=== PATIENT | female | born 2000 | race Caucasian/White ===

== ENCOUNTER 2019-04-19 08:40 | Emergency (ER) | payer OTHER ==
[2019-04-19] MEDS ORDERED: WARF4TAB46 PO (08:51)
[2019-04-19] MEDS ORDERED: ETON68IM SQ (08:51)
[2019-04-19] MEDS ORDERED: WARF1TAB56 PO (08:51)
--- NOTE | 2019-04-19 09:02 | ER Report ---
History and Physical Time Seen By MD: 09:00 Hx. of Stated Complaint: bucked off horse is on warafin HPI/ROS 19 y/o female on warfarin for protein c deficiency. 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 Pain at left hip, but able to ambulate with minimal pain. Pain at upper T-spine. No focal neuro deficits. No LOC. No neck pain. Allergies: Coded Allergies: No Known Allergies (Verified Allergy, Unknown, 04/19/19) Home Meds Reported Medications Etonogestrel (NEXPLANON) 68 Mg Implant, 68 MG SQ DIRECTED, IMPLANT 04/19/19 Warfarin Sodium (COUMADIN) 1 Mg Tablet, 0.5 MG PO QDAY 04/19/19 Warfarin Sodium (COUMADIN) 4 Mg Tablet, 8 MG PO QDAY 04/19/19 Hx Substance Use Disorder: No Hx Alcohol Use: No Constitutional Vital Sign - Last 24 Hours 04/19/19 04/19/19 04/19/19 04/19/19 08:40 08:42 08:45 09:00 Temp 98.0 Pulse 117 117 Resp 14 B/P (MAP) 143/84 (103) 143/84 127/65 (85) Pulse Ox 96 98 O2 Delivery Room Air 04/19/19 04/19/19 04/19/19 04/19/19 09:10 09:15 09:30 09:45 Pulse 98 84 79 B/P (MAP) 129/79 (96) Pulse Ox 97 96 96 04/19/19 04/19/19 04/19/19 04/19/19 09:50 10:00 10:20 10:30 Pulse 83 ??? B/P (MAP) 110/69 (83) 116/64 (81) Pulse Ox 95 04/19/19 04/19/19 04/19/19 04/19/19 10:35 11:00 11:05 11:30 Pulse 74 72 B/P (MAP) 119/64 (82) 121/71 (88) Pulse Ox 100 98 04/19/19 04/19/19 04/19/19 04/19/19 11:35 11:40 12:00 12:10 Pulse 68 82 78 B/P (MAP) 118/81 (93) Pulse Ox 97 94 95 7/904/19/19 04/19/19 04/19/19 12:15 12:30 12:35 13:35 Pulse 76 93 78 B/P (MAP) 127/73 (91) Pulse Ox 95 97 04/19/19 04/19/19 13:40 13:55 Pulse 88 B/P (MAP) 125/76 (92) Pulse Ox 93 Physical Exam General Appearance: The patient is alert, has no immediate need for airway protection and no current signs of toxicity. Eyes: Pupils equal and round no injection. Respiratory: Chest is non tender, lungs are clear to auscultation. Cardiac: regular rate and rhythm Gastrointestinal: Abdomen is soft and non tender, no masses, bowel sounds normal. Musculoskeletal: TTP at T2-T4 Neck: Neck is supple and non tender. Extremities have full range of motion and are non tender. Skin: No rashes or lesions. Neuro: Strength/sensation grossly in tact. Medical Decision Making Data Points Result Diagram: 04/19/19 0908 04/19/19 0908 Laboratory Hematology Test 04/19/19 09:08 Red Blood Count 4.83 M/uL (4.17-5.56) Mean Corpuscular Volume 92.5 fL (80.0-96.0) Mean Corpuscular Hemoglobin 31.5 pg (26.0-33.0) Mean Corpuscular Hemoglobin Concent 34.0 g/dL (32.0-36.0) Red Cell Distribution Width 12.8 % (11.5-14.5) Mean Platelet Volume 9.6 fL (7.2-11.1) Neutrophils (%) (Auto) 68.7 % (39.4-72.5) Lymphocytes (%) (Auto) 20.2 % (17.6-49.6) Monocytes (%) (Auto) 7.0 % (4.1-12.4) Eosinophils (%) (Auto) 3.4 % (0.4-6.7) Basophils (%) (Auto) 0.7 % (0.3-1.4) Nucleated RBC Relative Count (auto) 0.0 /100WBC Neutrophils # (Auto) 3.6 K/uL (2.0-7.4) Lymphocytes # (Auto) 1.0 K/uL (1.3-3.6) Monocytes # (Auto) 0.4 K/uL (0.3-1.0) Eosinophils # (Auto) 0.2 K/uL (0.0-0.5) Basophils # (Auto) 0.0 K/uL (0.0-0.1) Nucleated RBC Absolute Count (auto) 0.00 K/uL Prothrombin Time 22.6 seconds (12.0-14.4) Prothromb Time International Ratio 1.96 Activated Partial Thromboplast Time 40 seconds (23-35) Sodium Level 142 mmol/L (137-145) Potassium Level 3.7 mmol/L (3.5-5.0) Chloride Level 104 mmol/L (98-107) Carbon Dioxide Level 27 mmol/L (22-31) Blood Urea Nitrogen 12 mg/dl (7-18) Creatinine 0.80 mg/dl (0.52-1.04) Glomerular Filtration Rate Calc > 60.0 Random Glucose 105 mg/dl (75-110) Calcium Level 10.1 mg/dl (8.4-10.2) Total Bilirubin 1.9 mg/dl (0.2-1.3) Aspartate Amino Transf (AST/SGOT) 37 U/L (0-35) Alanine Aminotransferase (ALT/SGPT) 44 U/L (0-56) Alkaline Phosphatase 45 U/L (0-126) Total Protein 7.9 g/dl (6.3-8.2) Albumin 4.7 g/dl (3.5-5.0) Human Chorionic Gonadotropin, Qual Negative (NEGATIVE) Chemistry Test 04/19/19 09:08 White Blood Count 5.2 k/uL (4.5-11.0) Red Blood Count 4.83 M/uL (4.17-5.56) Hemoglobin 15.2 g/dL (12.0-16.0) Hematocrit 44.7 % (34.0-47.0) Mean Corpuscular Volume 92.5 fL (80.0-96.0) Mean Corpuscular Hemoglobin 31.5 pg (26.0-33.0) Mean Corpuscular Hemoglobin Concent 34.0 g/dL (32.0-36.0) Red Cell Distribution Width 12.8 % (11.5-14.5) Platelet Count 173 K/uL (150-450) Mean Platelet Volume 9.6 fL (7.2-11.1) Neutrophils (%) (Auto) 68.7 % (39.4-72.5) Lymphocytes (%) (Auto) 20.2 % (17.6-49.6) Monocytes (%) (Auto) 7.0 % (4.1-12.4) Eosinophils (%) (Auto) 3.4 % (0.4-6.7) Basophils (%) (Auto) 0.7 % (0.3-1.4) Nucleated RBC Relative Count (auto) 0.0 /100WBC Neutrophils # (Auto) 3.6 K/uL (2.0-7.4) Lymphocytes # (Auto) 1.0 K/uL (1.3-3.6) Monocytes # (Auto) 0.4 K/uL (0.3-1.0) Eosinophils # (Auto) 0.2 K/uL (0.0-0.5) Basophils # (Auto) 0.0 K/uL (0.0-0.1) Nucleated RBC Absolute Count (auto) 0.00 K/uL Prothrombin Time 22.6 seconds (12.0-14.4) Prothromb Time International Ratio 1.96 Activated Partial Thromboplast Time 40 seconds (23-35) Glomerular Filtration Rate Calc > 60.0 Calcium Level 10.1 mg/dl (8.4-10.2) Total Bilirubin 1.9 mg/dl (0.2-1.3) Aspartate Amino Transf (AST/SGOT) 37 U/L (0-35) Alanine Aminotransferase (ALT/SGPT) 44 U/L (0-56) Alkaline Phosphatase 45 U/L (0-126) Total Protein 7.9 g/dl (6.3-8.2) Albumin 4.7 g/dl (3.5-5.0) Human Chorionic Gonadotropin, Qual Negative (NEGATIVE) Coagulation Test 04/19/19 09:08 Prothrombin Time 22.6 seconds Prothromb Time International Ratio 1.96 Activated Partial Thromboplast Time 40 seconds ED Course/Re-evaluation ED Course INR not supratherapeutic. No midline c-spine TTP. No focal neuro deficits. No abdominal pain or chest pain. No hematuria. CT scan questionnable for compress ion fracture which was at the site of her pain. MRI confirms no fracture. Does not want pain meds. Will follow up with PCM. Decision to Disposition Date: Apr 19, 2019 Decision to Disposition Time: 11:39 Depart Departure Latest Vital Signs Vital Signs Date Time Temp Pulse Resp B/P (MAP) Pulse Ox O2 Delivery O2 Flow Rate FiO2 04/19/19 13:55 125/76 (92) 04/19/19 13:40 88 93 04/19/19 08:45 98.0 14 Room Air Impression: Primary Impression: Fall from horse Condition: Improved Disposition: HOME OR SELF-CARE Additional Instructions: Resume your normal activity. Return to the ED for worsening pain. Problem Qualifiers Primary Impression: Fall from horse Encounter type: initial encounter Qualified Codes: V80.010A - Animal-rider injured by fall from or being thrown from horse in noncollision accident, initial encounter KLAUS OTT MD Apr 19, 2019 09:02
[2019-04-19] MEDS ORDERED: NS(*) 0.9% 1000 ML BAG 1,000 ML IV ONE (09:05)
[2019-04-19 09:25] LABS: PLATELET COUNT, AUTOMATED 173 K/uL (150-450)
[2019-04-19 09:30] LABS: INR 1.96
[2019-04-19] MEDS ORDERED: IOPAMIDOL 76% 100 ML INFUS BTL 100 ML ONE (10:09)
--- NOTE | 2019-04-19 10:41 | RADIOLOGY IMAGING REPORT ---
FACILITY: [facility] [place] PATIENT NAME: Usama Montalvo : 2000 MR: [id number] V: [id number] EXAM DATE: ORDERING PHYSICIAN: KLAUS OTT TECHNOLOGIST: Location: [facility] [place] Patient: Usama Montalvo : 2000 Visit/Account:[id number] Date of Sevice: 04/19/2019 EXAMINATION: CT Head without intravenous contrast HISTORY: Trauma. TECHNIQUE: Axial images were obtained from the skull base to the vertex without intravenous contrast . Sagittal and coronal reformatted images are also submitted. One of the following dose optimization techniques was utilized in the performance of this exam: Autom ated exposure control; adjustment of the mA and/or kV according to the patient's size; or use of an i terative reconstruction technique. Specific details can be referenced in the facility's radiology C T exam operational policy. COMPARISON: None available. FINDINGS: Brain volume: Normal. Ventricles: Negative. Acute ischemic changes: None. Hemorrhage: None. Masses / edema: None. Flores-white: Negative. White matter: Negative. Vessels: Negative. Extra-axial: Negative. Calvarium / skull base: Negative. Visualized sinuses / orbits: Leftward nasal septal deviation with yassine bullosa of the right middle turbinate. IMPRESSION: No acute intracranial abnormality. Report Dictated By: Kelechi Hu MD at 04/19/2019 10:30 AM Report E-Signed By: Kelechi Hu MD at 04/19/2019 10:33 AM [id number]
--- NOTE | 2019-04-19 11:13 | RADIOLOGY IMAGING REPORT ---
FACILITY: [facility] PATIENT NAME: Usama Montalvo : 2000 MR: [id number] V: [id number] EXAM DATE: ORDERING PHYSICIAN: KLAUS OTT TECHNOLOGIST: Location: [facility] [place] Patient: Usama Montalvo : 2000 Visit/Account:[id number] Date of Sevice: 04/19/2019 CT CHEST ABDOMEN PELVIS W/CON HISTORY: fall off horse, warfarin, upper back, chest left hip ADDITIONAL HISTORY: None. TECHNIQUE: Following administration of IV contrast axial images acquired through the chest abdomen a nd pelvis during the portal venous phase. Coronal and sagittal reformatting was also performed.Dose Lowering Technique One of the following dose optimization techniques was utilized in the performance of this exam: Autom ated exposure control; adjustment of the mA and/or kV according to the patient's size; or use of an i terative reconstruction technique. Specific details can be referenced in the facility's radiology C T exam operational policy. CONTRAST: 75 mL [id number] COMPARISON: None. FINDINGS: CHEST: Lungs/Pleura: There is a 1.7 cm subpleural bleb/bulla posterior aspect of the superior segment of th e right lower lobe. No evidence of a pneumothorax or pneumomediastinum Mediastinum/lymph nodes: There is a triangular-shaped soft tissue density structure in the anterior mediastinum with slight superior extension to the cervical thoracic junction anterior to the trachea with CT Hounsfield units of approximately 76. This likely represents residual thymus. Heart/vessels: Negative. Bones/soft tissues: There is mild loss of height of the superior endplates of T2 and T3 which may re present subtle acute compression fractures ABDOMEN AND PELVIS: Hepatobiliary: Negative. Spleen: Negative. Pancreas: Negative. Adrenals: Negative. Kidneys ureters and bladder : Negative. Genitalia: There is a 2 cm right ovarian cyst. The uterus is canted towards the left GI: There is a moderate amount of fecal material seen throughout colon which can be seen with const ipation. Vessels/spaces/nodes: There is a vascular stent extending from the distal IVC through the left commo n iliac vein. There are numerous venous collaterals seen in the subcutaneous soft tissues along the anterior aspect of the lower pelvis Bones/soft tissues: Negative. Additional findings: None pertinent. IMPRESSION: There is mild loss of height of the superior endplates of T2 and T3 which may represent subtle acute compression fractures. If this is of clinical concern MR may be helpful for further characterization Trigone shaped soft tissue density structure in the anterior mediastinum likely represents residual t hymus 2 cm right ovarian cyst Moderate amount of fecal material throughout colon which can be seen with constipation. There is a vascular stent extending from the distal IVC through the left common iliac vein with numer ous venous collaterals seen in the subcutaneous soft tissues over the anterior aspect of the lower pe lvis Report Dictated By: Shi Lynn MD at 04/19/2019 10:48 AM Report E-Signed By: Shi Lynn MD at 04/19/2019 11:06 AM [id number]
--- NOTE | 2019-04-19 13:52 | RADIOLOGY IMAGING REPORT ---
FACILITY: [facility] PATIENT NAME: Usama Montalvo : 2000 MR: [id number] V: [id number] EXAM DATE: ORDERING PHYSICIAN: KLAUS OTT TECHNOLOGIST: [place] [facility] [place] Patient: Usama Montalvo : 2000 Visit/Account:[id number] Date of Sevice: 04/19/2019 EXAMINATION: MRI thoracic spine without IV contrast HISTORY: Trauma pain at the T2-3 level, question fracture on CT COMPARISON: CT scan performed same day. TECHNIQUE: Multi-planar, multi-sequence thoracic spine MRI was performed without intravenous contras t administration. FINDINGS: Alignment: Negative. Vertebral marrow signal: No marrow edema. Mild indentations of the superior endplates of T2 and T3 ar e believed to be chronic. Paravertebral soft tissues: Negative. Thoracic cord: Negative. Conus: Negative, terminates at L1 Disc Spaces: Normal. IMPRESSION: No evidence of acute fracture. Report Dictated By: JESSICA BARRON at 04/19/2019 1:40 PM Report E-Signed By: JESSICA BARRON at 04/19/2019 1:45 PM [id number]
[2019-04-19 13:55] VITALS: BP 125/76
== END 2019-04-19 14:12 | disposition home or self-care (01) ==
LOC: ER 08:58
DX: M25.552 Pain in left hip (principal); V80.010A Animal-rider injured by fall from or being thrown from horse in noncollision accident, initial encounter; Z79.01 Long term (current) use of anticoagulants
CPT/HCPCS: 70450; 71260; 72146; 74177; 84703; 85025; 85610; 85730; 96360; 96361; 99284; J7030; Q9967; 82040; 82247; 82310; 82374; 82435; 82565; 82947; 84075; 84132; 84155; 84295; 84450; 84460; 84520